=== PATIENT | male | born 1960 | race Caucasian/White ===

== ENCOUNTER → 2017-07-29 | Outpatient (CLI) | payer OTHER ==
[~2017-07-29] MED LIST: BUPIVACAINE 0.25% ONE; EPINEPHRINE 1 MG/ML, 1ML ONE; HYDR-3240 PO; MULTIPLE SUPPLEMENTS PO; No meds per pt.
== END ==
LOC: STAR 08:12
PROVIDERS: ATTEND Orthopaedic Surgery
DX: Z02.9 Encounter for administrative examinations, unspecified (principal)

== ENCOUNTER 2017-08-06 07:13 | Day surgery (SDC) | payer OTHER ==
[2017-07-29 08:36] VITALS: BP 118/81
[~2017-08-06] VITALS: Ht 180.3 cm; Wt 108.2 kg
[~2017-08-06 07:13] MED LIST changes: -BUPIVACAINE 0.25% ONE; -EPINEPHRINE 1 MG/ML, 1ML ONE
[2017-08-06] MEDS ORDERED: FENTANYL PF 100 MCG/2ML ONE (07:28)
[2017-08-06] MEDS ORDERED: MIDAZOLAM 1 MG/ML, 2ML ONE (07:28)
[2017-08-06] MEDS ORDERED: BUPIVACAINE/PF 0.5% ONE (07:29)
[2017-08-06] MEDS ORDERED: LIDOCAINE 2%, 10ML ONE (07:29)
[2017-08-06] MEDS ORDERED: DEXAMETHASONE 4 MG/ML, 1ML ONE (07:46)
[2017-08-06] MEDS ORDERED: CEFAZOLIN 1,000 MG ONE (07:46)
[2017-08-06] MEDS ORDERED: ONDANSETRON 2MG/ML, 2ML ONE (07:46)
[2017-08-06] MEDS ORDERED: LIDOCAINE GEL 2%, 5ML ONE (07:46)
[2017-08-06] MEDS ORDERED: PROPOFOL 10 MG/ML, 20ML ONE (07:46)
[2017-08-06] MEDS ORDERED: LACTATED RINGERS 1,000 ML IV SCH (07:59)
[2017-08-06] MEDS ORDERED: ROCURONIUM 10 MG/ML,10ML ONE (08:53)
[2017-08-06] MEDS ORDERED: SUCCINYLCHOLINE 20 MG/ML, 10ML ONE (08:53)
[2017-08-06] MEDS ORDERED: ONDANSETRON ODT 8 MG PO ONE (09:00)
[2017-08-06] MEDS ORDERED: ACETAMINOPHEN 500 MG TABLET PO ONE (09:00)
[2017-08-06] MEDS ORDERED: GABAPENTIN 300 MG CAPSULE PO ONE (09:00)
[2017-08-06] MEDS ORDERED: KETOROLAC 30 MG/1 ML ONE (09:20)
[2017-08-06] MEDS ORDERED: ONDANSETRON 2MG/ML, 2ML IVPush PRN (09:30)
[2017-08-06] MEDS ORDERED: MEPERIDINE/PF 25MG/0.5ML IVPush PRN (09:30)
[2017-08-06] MEDS ORDERED: ALBUTEROL SULFATE 2.5 MG/3 ML NPPB PRN (09:30)
[2017-08-06] MEDS ORDERED: LORazepam 2 MG/ML, 1ML IVPush PRN (09:30)
[2017-08-06] MEDS ORDERED: ALBUTEROL/IPRATROPIUM 2.5MG/0.5MG, 3 ML NPPB PRN (09:30)
[2017-08-06] MEDS ORDERED: LABETALOL 5MG/ML, 20ML IV PRN (09:30)
[2017-08-06] MEDS ORDERED: PROMETHAZINE 25 MG SUPP PR PRN (09:30)
[2017-08-06] MEDS ORDERED: OXYcodone 5 MG/5 ML ORAL.SOL UDC PO PRN (09:30)
[2017-08-06] MEDS ORDERED: MIDAZOLAM 1 MG/ML, 2ML IV PRN (09:30)
[2017-08-06] MEDS ORDERED: FENTANYL PF 100 MCG/2ML IV PRN (09:30)
[2017-08-06] MEDS ORDERED: MORPHINE SULFATE 4 MG/ML, 1ML IVPush PRN (09:30)
[2017-08-06] MEDS ORDERED: hydrALAzine 20 MG/ML, 1ML IV PRN (09:30)
[2017-08-06] MEDS ORDERED: DIAZEPAM 5 MG/ML, 2ML IVPush PRN (09:30)
[2017-08-06] MEDS ORDERED: PROMETHAZINE 25 MG/ML, 1ML IV PRN (09:30)
[2017-08-06] MEDS ORDERED: OXYcodone 5 MG/5 ML ORAL.SOL UDC ONE (10:39)
== END 2017-08-06 12:50 ==
LOC: OUT 07:13
PROVIDERS: ATTEND Orthopaedic Surgery
DX: M75.112 Incomplete rotator cuff tear or rupture of left shoulder, not specified as traumatic (principal); M24.112 Other articular cartilage disorders, left shoulder; M75.42 Impingement syndrome of left shoulder; M75.82 Other shoulder lesions, left shoulder
CPT/HCPCS: J0171; J0690; J1100; J1885; J2250; J2405; J2704; J3010; J3370; J3490; Q0162; C1713; J0330; J7120